=== PATIENT | male | born 1985 | race African-American/Black ===

== ENCOUNTER 2023-09-23 23:04 | Emergency (ER) | payer OTHER, SELFPAY ==
[2023-09-23 23:07] VITALS: BP 138/88; PULSE 101; O2SAT 98
[2023-09-23 23:15] VITALS: BP 136/87; PULSE 105; RESP 18; TEMP 36.9; O2SAT 98; BMI 22.3
--- NOTE | 2023-09-23 23:38 | ED_ITS ---
HPI - General Adult General Chief complaint: Wound/Laceration Stated complaint: 2 INCH LAC ON MIDDLE FINGER Time Seen by Provider: 09/23/23 23:38 History of Present Illness ED Provider: Tyrone MANUEL narrative: The patient is a 38-year-old male who says that he accidentally sustained a laceration to the dorsum of his left middle finger when he put his hand into a bag that had an open razor. The patient's and that he had a straight razor in the bag that had opened accidentally. He denies any intentional self-harm. He has no numbness or tingling in the finger. He has no sense of loss of function of the finger. Feels he is able to fully extend the finger. He believes he is up-to-date on tetanus. Related Data Allergies Allergy/AdvReac Type Severity Reaction Status Date / Time No Known Allergies Allergy Verified 09/23/23 23:17 Review of Systems Review of Systems: Yes all other systems are reviewed and are negative [facility] Social History Social History Smoked in Last 30 Days: No Use of substances other than those prescribed or required for medical reasons: No Advance Directives: No Advance Directives Information Provided: No Physical Exam ED Vital Signs: Vital Signs - 24 hr 09/23/23 23:15 Temperature 98.4 F Pulse Rate 105 H Respiratory Rate 18 Blood Pressure 136/87 Pulse Oximetry 98 Oxygen Delivery Method Room Air BMI result Body Mass Index 22.3 Const Other: The patient is awake, alert, pleasant, cooperative. He does not appear in acute distress although he has an obvious wound to the dorsum of the left index finger. HENMT Other: Appearance of the face is unremarkable. Eyes Other: Pupils are round equal, conjunctivae are clear Resp Effort & Inspection: normal respiratory effort Skin Other: There is a 3 cm laceration some of the left index finger. The laceration lies obliquely over the PIP joint. Neuro Other: The patient is awake and alert. The patient has intact motor function and sensation of the left index finger. Extrem Other: The laceration over the PIP joint dorsally of the left index finger. The patient has full extensor strength of the finger. He is able to fully extend the finger and keep the finger extended at the PIP joint against resistance. There is no deformity to the joint or the finger. Medications Administered Discontinued Medications Generic Name Dose Route Start Last Admin Trade Name Freq PRN Reason Stop Dose Admin Bacitracin 1 appl 09/24/23 00:37 09/24/23 01:01 Bacitracin Oint 0.9 Gm Packet TOPICAL 09/24/23 00:38 1 appl ONCE ONE Administration Protocol Cephalexin HCl 1,000 mg 09/24/23 00:37 09/24/23 01:01 Cephalexin 500 Mg Capsule PO 09/24/23 00:38 1,000 mg ONCE ONE Administration Lidocaine HCl 10 ml 09/24/23 00:09 09/24/23 01:01 Lidocaine Hcl 1 % 10 Ml Vial INFILTRATI 09/24/23 00:10 10 ml ONCE ONE Administration Procedures Laceration Laceration 1: Site: hand Side (If applicable): left Size (cm): 3 Description: linear Depth: simple, single layer Local Anesthetic: lidocaine 1% Amount of anesthesia used (mL): 6 Pre-repair: wound explored, irrigated extensively and deep structures intact Skin layer closed with: nylon Size (cm): 4-0 Number of sutures: 6 Technique: simple, interrupted Medical Decision Making Medical Decision Making [facility] Narrative: The patient is a 38-year-old male who sustained a laceration to the dorsum of the left index finger over the PIP joint. This was an accidental laceration. He says that he reached into a bag in which he had placed a straight razor that had accidentally opened in the bag. A laceration lies over the PIP joint but he does not seem to have any loss of extensor function of the PIP joint. The finger was anesthetized using a digital block at the base of the finger. The skin of the base of the finger was prepped with Betadine. 3 cc of 1% lidocaine were injected on either side of the base of the finger. This provided good anesthesia. The remainder of the finger was prepped with Betadine. The wound was copiously irrigated. The wound was explored. There were no obvious deeper structures injured. No apparent violation of the joint space of the PIP joint. After exploration and irrigation the wound was closed with 6 simple interrupted stitches using 4-0 nylon. Adequate wound edge approximation was achieved. The patient tolerated the procedure well. The patient was given a single dose of 1000 mg of cephalexin as wound infection prophylaxis. The patient believes he is up-to-date on tetanus. He has a primary care doctor at [facility] in [place]. He is advised to make a follow up appointment in 10 days for suture removal. He should return to the emergency room if any signs of infection. Discharge Plan Discharge Clinical Impression: Laceration of left middle finger Patient Disposition: Home, Self-Care Instructions: Finger Laceration (ED) Additional Instructions: The wound on your left middle finger was closed with 6 stitches. The stitches should be removed in approximately 10 days. This can be done at your primary care doctor's office. The dressing to the wound should be changed at least daily. Change the dressing more frequently if the dressing is wet or soiled. Apply bacitracin with dressing changes for the firstst 2 days. Please contact your primary care doctor's office in the morning to schedule a follow up appointment for suture removal in approximately 10 days. Keep the wound clean and dry. It may get wet after 24 hours but do your best to protect the wound. No swimming until the stitches are out. Return to the emergency room if any sign of infection. Referrals: [facility] [Provider Group] (left middle finger laceration) Print Language: Malian
[2023-09-24] MEDS: Lidocaine HCl 1 % 10 ML VIAL INFILTRATI (01:01)
[2023-09-24] MEDS: Bacitracin Oint 0.9 GM PACKET 1 APPL TOPICAL (01:01)
[2023-09-24] MEDS: cephALEXin 500 MG CAPSULE 1000 MG PO (01:01)
[2023-09-24 01:21] VITALS: BP 136/87; PULSE 105; RESP 18; TEMP 36.9; O2SAT 98
== END 2023-09-24 01:37 | disposition home or self-care (01) ==
PROVIDERS: Emergency Provider Emergency Medicine
DX: S61.213A Laceration without foreign body of left middle finger without damage to nail, initial encounter (principal); M79.642 Pain in left hand; W26.9XXA Contact with unspecified sharp object(s), initial encounter; Y93.9 Activity, unspecified; Y92.9 Unspecified place or not applicable; Y99.8 Other external cause status
CPT/HCPCS: 12042; 99284

== ENCOUNTER 2023-09-24 03:45 | Emergency (ER) | payer OTHER, SELFPAY ==
[2023-09-24 04:11] VITALS: BP 123/75; PULSE 65; RESP 16; TEMP 36.3; O2SAT 100; BMI 24.6
--- OUTSIDE RECORDS SUMMARY | 2023-09-24 04:46 | XMS_ITS | Continuity of Care Document ---
Author Organization [facility] ter Address [address] [place] [address]- Care Team Providers Care Fabric Worker Supervisor Name Role Phone Sara MAYS, Nata Werner Primary Care Physician [place] [facility] [place] - 05/20/[address] [address]- [facility] Discharge Disposition: A-D/C Home Attending Physician: Adithya Waldrop MD Admitting Physician: Adithya Waldrop MD Referring Physician: Not on Staff, Referring MD Allergies, Adverse Reactions, Alerts Substance Reaction Severity Status NKA Active Immunizations Given and Recorded Vaccine Date Status Refusal Reason tetanus/diphtheria/pertussis, acel(Tdap) 02/05/19 Given Medications sertraline 50 mg oral tablet = 50 mg, By Mouth, Daily, 0 Refills, Maintenance, 06/11/17 10:39:06, Tablet Start Date: 06/11/17 Status: Ordered Vital Signs Most recent to oldest [Reference Range]: 1 2 3 Oxygen Saturation [94-100 %] 100 % (05/20/19 7:08 AM) 100 % (05/20/19 2:04 AM) 100 % (05/20/19 12:22 AM) Pulse Rate [55-90 bpm] 72 bpm (05/20/19 7:08 AM) 65 bpm (05/20/19 2:04 AM) 68 bpm (05/20/19 12:22 AM) Blood Pressure [90-138/55-84 mm Hg] 112/69mm Hg (05/20/19 7:08 AM) 110/52mm Hg (05/20/19 2:04 AM) 117/65mm Hg (05/20/19 12:22 AM) Respiratory Rate [16-30 br/min] 18 br/min (05/20/19 7:08 AM) 14 br/min *L* (05/20/19 2:04 AM) 14 br/min *L* (05/20/19 12:22 AM) Temperature [96.8-100.4 DegF] 97.4 DegF (05/20/19 7:08 AM) 97.2 DegF (05/20/19 12:22 AM) Mode of Delivery (Oxygen) Room air (05/20/19 7:08 AM) Room air (05/20/19 2:04 AM) Room air (05/20/19 12:22 AM) Blood pressure sites Arm, right (05/20/19 7:08 AM) Arm, right (05/20/19 2:04 AM) Arm, right (05/20/19 12:22 AM) Temperature Route Oral (05/20/19 7:08 AM) Axillary (05/20/19 12:22 AM) Social History Social History Type Response Smoking Status 10 or more cigarette s (1/2 pack or more)/day in last 30 days entered on: 04/21/19 Sex
--- OUTSIDE RECORDS SUMMARY | 2023-09-24 04:46 | XMS_ITS | Continuity of Care Document ---
Author Organization [facility] ter Address [address] [place] [id number]- Care Team Providers Care Home Staging Specialist Name Role Phone Eden Davies MD Primary Care Physician Encounter [facility] [place] Date(s): 12/17/19 - 12/17/[address] [address]- [facility] Encounter Diagnosis Drug use(Final) - 12/17/19 Discharge Disposition: A-D/C Home Attending Physician: Trev Caraballo MD Admitting Physician: Trev Caraballo MD Referring Physician: Not on Staff, Referring [...] 1 2 3 Oxygen Saturation [94-100 %] 99 % (12/17/19 7:43 AM) 100 % (12/17/19 6:10 AM) 99 % (12/17/19 3:47 AM) Pulse Rate [55-90 bpm] 79 bpm (12/17/19 7:43 AM) 100 bpm *H* (12/17/19 6:10 AM) 120 bpm *H* (12/17/19 3:47 AM) Blood Pressure [90-138/55-84 mm Hg] 136/79mm Hg (12/17/19 7:43 AM) 135/78mm Hg (12/17/19 6:10 AM) 144/74mm Hg *H* (12/17/19 3:47 AM) Respiratory Rate [16-30 br/min] 16 br/min (12/17/19 7:43 AM) 20 br/min (12/17/19 6:10 AM) 16 br/min (12/17/19 3:47 AM) Temperature [96.8-100.4 DegF] 98.4 DegF (12/17/19 6:10 AM) 98.7 DegF (12/17/19 3:47 AM) Mode of Delivery (Oxygen) Room air (12/17/19 7:43 AM) Room air (12/17/19 6:10 AM) Room air (12/17/19 3:47 AM) Blood pressure sites Arm, right (12/17/19 7:43 AM) Arm, left (12/17/19 6:10 AM) Arm, left (12/17/19 3:47 AM) Temperature Route Oral (12/17/19 6:10 AM) Oral (12/17/19 3:47 AM) Social History Social History Type Response Smoking Status 10 or more cigarette s (1/2 pack or more)/day in last 30 days entered on: 04/21/19 Sex
--- OUTSIDE RECORDS SUMMARY | 2023-09-24 04:46 | XMS_ITS | Patient Health Record ---
Author Organization [facility] Address [address] [place], [place] [id number] Care Team Providers Care Statistical Consultant Name Role Phone [facility], Nursing Unavailable [phone] REASON FOR REFERRAL No Information SOCIAL HISTORY Sex Assigned At : Social History Observation Description Sex Assigned At Unknown VITAL SIGNS Respiratory Rate 15 /min 01/07/2023 Blood pressure diastolic 78 01/07/2023 Oximetry 100 01/07/2023 Blood pressure systolic 134 01/07/2023 BMI ` kg/m2 01/07/2023 Encounters Encounter Location Date Provider Diagnosis [facility] [address] [place], [place] [id number] 01/07/2023 Nursing [facility] Encounter for screening for COVID-19 Z11.52 ASSESSMENTS Encounter Date Diagnosis Assessment Notes Treatment Notes Treatment Clinical Notes 01/07/2023 Encounter for screening for COVID-19 (ICD-10 - Z11.52) Covid screening is negative. Discussed in detail with patient how to practice social distancing by avoiding public spaces and crowds now, wearing a mask in public to keep nose and mouth covered, and washing hands frequently especially before eating and after using the bathroom. Return to clinic if you develop any symtpoms of concern to be rescreened or go to the emergency room if you are having concerning symptoms for COVID-19. 01/07/2023 Other PLAN OF TREATMENT No Information Insurance Providers Payer Name Payer Address Payer Phone Subscriber Number Group Number Insured Name Patient Relationship to Insured Coverage Start Date Coverage End Date [place] Medicaid Standard [address] [place] [address] [id number] Boo Odom Self - patient is the insured 2
--- OUTSIDE RECORDS SUMMARY | 2023-09-24 04:46 | XMS_ITS | Continuity of Care Document ---
Author Organization [facility] ter Address [address] [place] [address]- Care Team Providers Care Bible Worker Name Role Phone Sara MAYS, Nata Werner Primary Care Physician En[place] [facility] [place](s): 04/21/19 - 04/22/[address] [address]- [facility] Encounter Diagnosis PCP abuse(Final) - 04/21/19 Discharge Disposition: A-D/C Home Attending Physician: Gerber Mariee MD Admitting Physician: Gerber Mariee MD Referring Physician: Not on Staff, Referring MD Allergies, Adverse Reactions, Alerts Substance Reaction Severity Status NKA Active Immunizations Given and Recorded Vaccine Date Status Refusal Reason tetanus/diphtheria/pertussis, acel(Tdap) 02/05/19 Given Medications sertraline 50 mg oral tablet = 50 mg, By Mouth, Daily, 0 Refills, Maintenance, 06/11/17 10:39:06, Tablet Start Date: 06/11/17 Status: Ordered Vital Signs Most recent to oldest [Reference Range]: 1 Oxygen Saturation [94-100 %] 99 % (04/21/19 7:55 PM) Pulse Rate [55-90 bpm] 77 bpm (04/21/19 7:55 PM) Blood Pressure [90-138/55-84 mm Hg] 127/ 59mm Hg (04/21/19 7:55 PM) Respiratory Rate [16-30 br/min] 19 br/mi n (04/21/19 7:55 PM) Temperature [96.8-100.4 DegF] 98.6 DegF (04/21/19 7:55 PM) Mode of Delivery (Oxygen) Room air (04/21/19 7:55 PM) Blood pressure sites Arm, left (04/21/19 7:55 PM) Temperature Route Oral (04/21/19 7:55 PM) Social History Social History Type Response Smoking Status 10 or more cigarette s (1/2 pack or more)/day in last 30 days entered on: 04/21/19 Sex
--- OUTSIDE RECORDS SUMMARY | 2023-09-24 04:46 | XMS_ITS | Continuity of Care Document ---
Author Organization [facility] Address [address] [place] [address]- Care Team Providers Care Screw Machine Operator Single Spindle Name Role Phone Eden Davies MD Primary Care Physician [place] [facility] [place](s): 11/29/20 - 11/30/[address] [address]- Encounter Diagnosis Agitation(Final) - 11/29/20 Discharge Disposition: A-D/C Home Attending Physician: Aj Albarado DO Admitting Physician: Aj Albarado DO Referring Physician: Not on Staff, Referring MD [...] 3 Oxygen Saturation [94-100 %] 100 % (11/30/20 6:47 AM) 100 % (11/30/20 3:36 AM) 100 % (11/30/20 1:02 AM) Pulse Rate [55-90 bpm] 82 bpm (11/30/20 6:47 AM) 96 bpm *H* (11/30/20 3:36 AM) 68 bpm (11/30/20 1:02 AM) Blood Pressure [90-138/55-84 mm Hg] 118/66mm Hg (11/30/20 6:47 AM) 121/67mm Hg (11/30/20 3:36 AM) 107/69mm Hg (11/30/20 1:02 AM) Respiratory Rate [16-30 br/min] 18 br/min (11/30/20 6:47 AM) 18 br/min (11/30/20 3:36 AM) 18 br/min (11/30/20 1:02 AM) Temperature [96.8-100.4 DegF] 97.6 DegF (11/30/20 6:47 AM) 97.3 DegF (11/30/20 3:36 AM) 98.6 DegF (11/29/20 9:35 PM) Mode of Delivery (Oxygen) Room air (11/30/20 6:47 AM) Room air (11/30/20 3:36 AM) Room air (11/30/20 1:02 AM) Temperature Route Oral (11/30/20 6:47 AM) Oral (11/30/20 3:36 AM) Axillary (11/29/20 9:35 PM) Social History Social History Type Response Smoking Status 10 or more cigarette s (1/2 pack or more)/day in last 30 days entered on: 04/21/19 Sex
--- OUTSIDE RECORDS SUMMARY | 2023-09-24 04:46 | XMS_ITS | Continuity of Care Document ---
Author Organization [facility] ter Address [address] [place] [address]- Care Team Providers Care Benzene Worker Name Role Phone Eden Davies MD Primary Care Physician Encounter [facility] [place] Date(s): 01/23/23 - 01/23/[address] [address]- Encounter Diagnosis Opiate overdose(Final) - 01/23/23 Cocaine use(Final) - 01/23/23 Hip pain(Final) - 01/23/23 Discharge Disposition: A-D/C Home Attending Physician: Ines Borges MD Admitting Physician: Ines Borges MD Referring Physician: Not on Staff, Referring MD Allergies, Adverse Reactions, Alerts No Known Allergies Immunizations Given and Recorded Vaccine Date Status Refusal Reason tetanus/diphtheria/pertussis, acel(Tdap) 02/05/19 Given Medications ibuprofen 600 mg oral tablet 600 mg, 1, tablet, By Mouth, 3 times a day, # 90 tablet, Refills 0, Tot. Refills 0, Acute 01/25/24 14:38:00 EST, 01/23/23 14:38:00 EDT, Route to Pharmacy Electronically, [facility]/pharmacy #[id number], Partial fill upon patient request if the prescription is for... Start Date: 01/23/23 Stop Date: 01/25/24 Status: Ordered sertraline 50 mg oral tablet = 50 mg, By Mouth, Daily, 0 Refills, Maintenance, 06/11/17 10:39:06, Tablet Start Date: 06/11/17 Status: Ordered Tylenol 325 mg oral tablet 650 mg, 2, tablet, By Mouth, Every 4 hours, PRN, # 120 tablet, Refills 0, Tot. Refills 0, Acute 01/25/24 14:38:00 EST, for pain, 01/23/23 14:38:00 EDT, Route to Pharmacy Electronically, [facility]/pharmacy #[id number], Partial fill upon patient request if the pres... Start Date: 01/23/23 Stop Date: 01/25/24 Status: Ordered Results Radiology Reports * Exam Date Time Procedure Performing Provider Status 01/23/23 1:12 PM XR Hip w/Pelvis 2-3 View Left Mai Denis; Auth (Verified) Notes: (XR Hip w/Pelvis 2-3 View Left) Reason For Exam: Pain RESULT: XR Hip w/Pelvis 2-3 View Left XR Hip w/Pelvis 2-3 View Left Hx of Present Illness: Found by people lying in parking lot, 911 was called, slow to respond and lethargic but cooperative per EMS, pt stated that he took 1bag, pt was unable to clarify; Reason: Pain; Clinical Question(s): Fracture COMPARISON: None. FINDINGS: There is no fracture or dislocation. Normal hips and sacroiliac joints. Normal soft tissues. IMPRESSION: Normal. WSN: [id number] Ordering Physician: Enriqueta Justice Dictated By: Viki Damian MD Dictated Date/Time: 01/23/23 1:37 pm Reviewed By: iVki Damian MD Signed By: Viki Damian MD Signed Date/Time: 01/23/23 1:37 pm Transcribed By: JOSE J Transcribed Date/Time: 01/23/23 1:36 pm Vital Signs Most recent to oldest [Reference Range]: 1 2 Oxygen Saturation [94-100 %] 100 % (01/23/23 2:19 PM) 100 % (01/23/23 11:13 AM) Pulse Rate [55-90 bpm] 57 bpm (01/23/23 2:19 PM) 62 bpm (01/23/23 11:13 AM) Blood Pressure [90-138/55-84 mm Hg] 117/ 63mm Hg (01/23/23 2:19 PM) 139/74mm Hg *H* (01/23/23 11:13 AM) Respiratory Rate [16-30 br/min] 18 br/mi n (01/23/23 2:19 PM) 18 br/min (01/23/23 11:13 AM) Temperature [96.8-100.4 DegF] 98.7 DegF (01/23/23 11:13 AM) Mode of Delivery (Oxygen) Room air (01/23/23 2:19 PM) Room air (01/23/23 11:13 AM) Temperature Route Oral (01/23/23 11:13 AM) Social History Social History Type Response Smoking Status 10 or more cigarette s (1/2 pack or more)/day in last 30 days entered on: 04/21/19 Sex Note * Enriqueta Justice DO: PERFORM Event Display: Patient Education Leaflets Authored Date: [id number] Opiate Overdose ?? [id number] Opiate Overdose You've been treated for an overdose of opiates, such as a prescription pain medicine or heroin.??Taking too many opiates is dangerous. They cause breathing to slow and possibly stop.??If you stop breathing for more than 2 to 3 minutes, your heart can stop and you will . Deaths from opiate overdose are a national epidemic. In 2019, the CDC estimated that more than 49,860 people in the [place] diedfrom an opioid overdose. This number reflects 70.6% of all drug overdose deaths. Signs and symptoms of overdose Symptoms can depend on how much of the drug and which ones were used. They include: ??? Trouble breathing or slow irregular breathing; breathing may even stop, which can cause ??? Drowsiness, trouble arousing, or coma ??? Small, pinpoint pupils ??? Cyanosis. This is when lips and nails appear blue because you don't have enough oxygen in the blood. ??? Slow heart rate ??? Lowbody temperature (hypothermia) ??? Muscle spasm ??? Seizures ??? If your overdose was severe, you may have been given an antidote, such as naloxone. The antidote effect lasts for about 1 to 2 hours.??If the opiate has not left your system by the time the antidote medicine wears off, your symptoms may return. These symptoms include drowsiness and slow breathing.?? If you were addicted and physically dependent on opiates, then naloxone may cause withdrawal symptoms to appear right away.??These may consist of: ??? Body aches ??? Diarrhea ??? Abdominal cramps ??? Upset stomach (nausea) ??? Vomiting ??? Runny nose ??? Sneezing ??? Sweating ??? Yawning ??? Restlessness ??? Irritability ??? Trembling These symptoms will go away as the naloxone wears off. Be aware of a drug called xylazine. This drug is approved for use in animals only. Xylazine is not safe in humans. Recently xylazine has been found as an additive in illicit drugs, especially heroin and fentanyl. Exposure to xylazine has been linked to serious and life-threatening side effects. Xylazine overdose can cause slow heart rate and breathing, low blood pressure, and coma. Repeated exposure to xylazine can cause severe skin ulcers. Xylazine overdose does not respond to naloxone. Care for xylazine overdose or exposure is supportive to help the body recover. ?? Home care The following guidelines will help you care for yourself at home: ??? Rest for the next 12 [address] or operate any vehicle or dangerous equipment until all opioid effects have worn off and you no longer feel sleepy or drowsy. ??? If you were previously prescribed opioid medicines for pain, don't take any more of this medicine for the next 6 to 8 hours, unless your healthcare provider says it's safe to do so. ??? If opioids or other drugs were swallowed, you may have been given liquid charcoal to neutralize those drugs.??The charcoal may cause nausea and vomiting over the next few hours. It will also cause a black color to your stools for the next 1 to 2 days. Usually, you will be given a laxative with the charcoal to speed the removal of any toxins from the digestive tract. This may cause diarrhea for up to 24 hours. If no laxative was given, you may become constipated. If this happens, you may take an [id number] laxative or suppository. ?? Follow-up care Follow up with your healthcare provider, or as advised if all symptoms don't go away within 24 hours, or if constipation is not eased after 2 doses of laxatives.??If your overdose was related to a drug addiction, seek drug counseling. Consider a drug treatment program to help break your habit. ?? Call 911 Call 911 if any of the following occur: ??? Seizure ??? Trouble breathing or slow irregular breathing ??? Chest pain ??? Sudden weakness on 1 side of your body or sudden trouble speaking ??? Very drowsy or having trouble waking up ??? Fainting or loss of consciousness ??? Rapid heart rate ??? Very slow heart rate ?? When to get medical advice Call your healthcare provider right away if any of the following occur: ??? Cough with colored sputum ??? Fever of 100.4??F (38??C) or higher, or as directed by your healthcare provider ??? Redness, swelling or tenderness at the heroin injection site (if using IV drugs) ??? Feeling that you might harm yourself or another Talk with your healthcare provider if you feel that you want to get drugs and would like to enter acounseling or rehabilitation program. ?? Last Reviewed Date: 2021 ?? [id number] [employer]. All rights reserved. This information is not intended as a substitute for professional medical care. Always follow your healthcare professional's instructions. ?? Patient Care team information Care Team Personnel Name: Carmen Alvarez RN Position: [facility] RN Member Role: Primary Care Nurse Name: Eden Davies MD Position: [facility] Physician - Primary Care Member Role: PCP Address: Address: [address] [place] [address]- Name: Enriqueta Justice DO Position: [facility] Resident Member Role: ED Resident Address: Address: [address] [place] [address]- Name: Zahraa Jin RN Position: [facility] ED RN W/OE and Tasks Member Role: Patient Care Provider Name: Adelia Samuel Position: [facility] ED TA [facility] Member Role: Crane Service Technician Name: Ines Borges MD Position: [facility] ED Medicine Member Role: Admitting Physician Address: Address: [address] [place] [address] [place] [address]- Care Team Related Persons Name: LEMUEL SUÁREZ Address: home [address] [place] [address]
--- OUTSIDE RECORDS SUMMARY | 2023-09-24 04:46 | XMS_ITS | Continuity of Care Document ---
Author Organization [facility] ter Address [address] [place] [id number]- Care Team Providers Care Holder Pile Driving Name Role Phone Eden Davies MD Primary Care Physician Encounter [facility] Date(s): 01/07/23 - 01/07/[address] [id number]- Encounter Diagnosis Marijuana abuse(Final) - 01/07/23 Discharge Disposition: A-D/C Home Attending Physician: Sandy Ngo MD Admitting Physician: Abiodun Royal MD, Sandy Referring Physician: Not on Staff, Referring MD [...] Range]: 1 2 Oxygen Saturation [94-100 %] 98 % (01/07/23 12:13 PM) 97 % (01/07/23 10:51 AM) Pulse Rate [55-90 bpm] 67 bpm (01/07/23 12:13 PM) 61 bpm (01/07/23 10:51 AM) Blood Pressure [90-138/55-84 mm Hg] 122/ 70mm Hg (01/07/23 12:13 PM) 125/74mm Hg (01/07/23 10:51 AM) Respiratory Rate [16-30 br/min] 18 br/mi n (01/07/23 12:13 PM) 19 br/min (01/07/23 10:51 AM) Temperature [96.8-100.4 DegF] 98.3 DegF (01/07/23 10:51 AM) Mode of Delivery (Oxygen) Room air (01/07/23 12:13 PM) Room air (01/07/23 10:51 AM) Blood pressure sites Arm, left (01/07/23 12:13 PM) Arm, left (01/07/23 10:51 AM) Temperature Route Oral (01/07/23 10:51 AM) Social History Social History Type Response Smoking Status 10 or more cigarette s (1/2 pack or more)/day in last 30 days entered on: 04/21/19 Sex EKG study * Event Display: EKG Authored Date: [id number] Note * Erik Napier DO: PERFORM Event Display: Patient Education Leaflets Authored Date: [id number] Drug Abuse ?? [id number] Drug Abuse Use and abuse of drugs or medicines may lead to addiction or dependence. You may hear drug abuse oraddiction called substance use disorder (JONNY). Examples of illegal drugs include amphetamines (alsoknown as speed or crank), methamphetamines (meth), cocaine, heroin, bath salts, and hallucinogens (such as MDMA, ecstasy, PCP, mescaline, and LSD). Xylazine is a sedative and pain reliever approved only for animals. It's not approved or safe for people. It's known by the street name tranq. Xylazine has been found in street drugs, especially heroin and fentanyl. It has been linked to overdoses and . Severe side effects from xylazine include slow heart beat and breathing, low blood pressure, skin sores, and coma. In some states, marijuana is an illegal drug. Medicines include prescription medicines, sedatives, and sleeping pills. Once addiction or dependence happens, you are at greater risk for the problems below. Social and personal problems ??? Craving for the drug and not being able to stop using even though you think you want to stop (psychological addiction) ??? Drug withdrawal symptoms if you stop takingthe drug (physical dependence) ??? Loss of friends and family ??? School or work problems ??? Arrest, conviction, and longterm sentence for possession of an illegal substance or for driving under the infl uence ?? Health problems ??? Stroke, heart attack, heart failure, and kidney failure ??? Accidental injuriesto yourself or others while you are under the influence of a drug (in a car or at home) ??? HIV infection. This is a much greater risk if you use IV drugs. ??? Skin infections ??? Other sexually transmitted infections (STIs), such as herpes, chlamydia, and gonorrhea ??? Severe and fatal infection of the heart valves if you use IV drugs ??? Hepatitis B or C ??? Dementia, mood disorders, persistenthallucinations (particularly with hallucinogens) ??? Dental problems from methamphetamine abuse ??? from overdose ?? Home care The following suggestions can help you care for yourself at home: ??? Admit you have a drug problem. Ask for help from your family and close friends. ??? Seek professional help. This could be one-on-one therapy or counseling. There are also outpatient, inpatient, and residential drug treatment programs. ??? Join a self-help group for drug abuse. ??? Stay away from friends who abuse drugs or temptyou to continue abusing drugs. ??? Eat a balanced diet and start a regular exercise program. ?? Follow-up care Follow up with your healthcare provider, or as advised. Contact 1 of the resources below for help: ??? Substance Abuse and Mental Health Services Administration (SAMHSA) at www.samhsa.gov/findtreatment ??? National [place] on Alcoholism and Drug Dependence at www.ncadd.org ??? Narcotics Anonymous at www.na.org ?? Call 911 Call 911 right away if any of these occur: ??? Seizure ??? Hard time breathing or slow, irregular breathing ??? Chest pain ??? Sudden weakness on 1 side of your body or sudden trouble speaking ??? Very drowsy or trouble waking up ??? Fainting or loss of consciousness ??? Fast heart rate ??? Very slow heart rate ?? When to get medical care Call your healthcare provider if any of these occur: ??? Agitation, anxiety, or unable to sleep ???Unintended weight loss. This means more than 10 to 15 pounds over 3 months. ??? Fever of 100.4??F (38??C) or higher, or as advised by your provider ??? Shortness of breath ??? Cough with colored sputum ??? Redness, swelling, or tenderness at an injection site ??? You think counseling or drug rehabilitation services are needed to prevent additional drug use ?? Last Reviewed Date: 2021 ?? 1851-9151 [employer]. All rights reserved. This information is not intended as a substitute for professional medical care. Always follow your healthcare professional's instructions. ?? Patient Care team information Care Team Personnel Name: Carmen Alvarez RN Position: [facility] RN Member Role: Primary Care Nurse Name: Eden Davies MD Position: [facility] Physician - Primary Care Member Role: PCP Address: Address: [address] [place] [address] Name: Evelio Alexander Position: [facility] ED TA [facility] Member Role: Scholarship Counselor Name: Sandy Ngo MD Position: [facility] ED Medicine MD Member Role: Admitting Physician Address: Address: [address] [place] [id number] Name: Erik Napier DO Position: [facility] Resident Member Role: Resident Address: Address: [address] [place] [address] Name: Yolis Mcclendon RN Position: [facility] ED RN W/OE and Tasks Member Role: Patient Care Provider Care Team Related Persons Name: LEMUEL SUÁREZ Address: [place] [address]
--- OUTSIDE RECORDS SUMMARY | 2023-09-24 04:46 | XMS_ITS | Continuity of Care Document ---
Author Organization [facility] Address [address] [place] [id number]- Care Team Providers Care Induction Coordination Power Engineer Name Role Phone Eden Davies MD Primary Care Physician Encounter [facility] Date(s): 10/15/20 - 10/16/[address] [address]- Encounter Diagnosis Agitation(Final) - 10/16/20 Discharge Disposition: A-D/C Home Attending Physician: Shannan Eagle MD Admitting Physician: Shannan Eagle MD Referring Physician: Not on Staff, Referring [...] 2 Oxygen Saturation [94-100 %] 100 % (10/16/20 8:39 AM) 96 % (10/15/20 8:08 PM) Pulse Rate [55-90 bpm] 74 bpm (10/16/20 8:39 AM) 123 bpm *H* (10/15/20 8:08 PM) Blood Pressure [90-138/55-84 mm Hg] 144/ 91mm Hg *H* (10/16/20 8:39 AM) 141/71mm Hg *H* (10/15/20 8:08 PM) Respiratory Rate [16-30 br/min] 20 br/mi n (10/16/20 8:39 AM) 16 br/min (10/15/20 8:08 PM) Temperature [96.8-100.4 DegF] 98.3 DegF (10/16/20 8:39 AM) 98.3 DegF (10/15/20 8:08 PM) Mode of Delivery (Oxygen) Room air (10/16/20 8:39 AM) Room air (10/15/20 8:08 PM) Blood pressure sites Arm, right (10/16/20 8:39 AM) Arm, right (10/15/20 8:08 PM) Temperature Route Oral (10/16/20 8:39 AM) Oral (10/15/20 8:08 PM) Social History Social History Type Response Smoking Status 10 or more cigarette s (1/2 pack or more)/day in last 30 days entered on: 04/21/19 Sex
--- NOTE | 2023-09-24 05:05 | ED_ITS ---
HPI - General Adult General Chief complaint: General Medical Stated complaint: doesnt feel well after meds Time Seen by Provider: 09/24/23 04:53 Source: patient Mode of arrival: ambulatory Limitations: no limitations History of Present Illness ED Provider: jasmeet MANUEL narrative: Patient does have laceration to the finger which was sutured comes back as feeling nauseated not feeling good patient had cook out last night no diarrhea no vomiting does feel nauseated Related Data Allergies Allergy/AdvReac Type Severity Reaction Status Date / Time No Known Allergies Allergy Verified 09/24/23 04:13 Review of Systems Review of Systems: Yes all other systems are reviewed and are negative [facility] Social History Social History Advance Directives: No Advance Directives Information Provided: No Do you have a plan to hurt others: No Plan Physical Exam ED Vital Signs: Vital Signs - 24 hr 09/24/23 04:11 Temperature 97.4 F Pulse Rate 65 Respiratory Rate 16 Blood Pressure 123/75 Pulse Oximetry 100 Oxygen Delivery Method Room Air BMI result Body Mass Index 24.6 Appearance: Alert. Oriented X3. No acute distress. Eyes: No pallor or icterus ENT: Pharynx normal. Oral Mucosa moist Neck: Normal inspection. Neck supple. CVS: Normal heart rate and rhythm. Pulses normal. Respiratory: No respiratory distress. Equal air entry bilateral, Abdomen: Soft and nontender. Bowel sounds are present, no mass palpable, no CVA tenderness Skin: Skin warm and dry. Normal skin color. Normal skin turgor. Extremities: No lower extremity edema. No calf tenderness Neuro: Oriented X 3. Medications Administered Discontinued Medications Generic Name Dose Route Start Last Admin Trade Name Tinoq PRN Reason Stop Dose Admin Ondansetron HCl 4 mg 09/24/23 05:07 09/24/23 05:17 Ondansetron Odt 4 Mg Tab.Rapdis TRANSLINGU 09/24/23 05:08 4 mg ONCE ONE Administration Medical Decision Making Medical Decision Making [facility] Narrative: Patient with vague symptoms does not any ride to go home complaining of nausea will give him Zofran p.o. challenge discharge Lab Data [facility] Lab Attestation statement: I reviewed the patient's lab results. Labs: Lab Results 09/24/23 Range/Units 05:12 POC Glucose 100 (60-115) mg/dL Discharge Plan Discharge Clinical Impression: Laceration of left middle finger Patient Disposition: Home, Self-Care Instructions: Laceration (ED) Additional Instructions: Drink plenty of fluids Care of the laceration as advised in previous visit Print Language: Divehi
[2023-09-24 05:17] LABS: Glucose, Whole Blood 100 mg/dL (60-115)
[2023-09-24] MEDS: Ondansetron ODT 4 MG TAB.RAPDIS TRANSLINGU (05:17)
[2023-09-24 06:16] VITALS: BP 134/86; PULSE 68; RESP 18; TEMP 36.5; O2SAT 99
== END 2023-09-24 06:16 | disposition home or self-care (01) ==
PROVIDERS: Emergency Provider Internal Medicine
DX: R11.0 Nausea (principal); S61.213D Laceration without foreign body of left middle finger without damage to nail, subsequent encounter; X58.XXXD Exposure to other specified factors, subsequent encounter
CPT/HCPCS: 82947; 99282; 99283

== ENCOUNTER 2023-10-16 14:22 | Emergency (ER) | payer OTHER, SELFPAY ==
[2023-10-16 14:29] VITALS: BP 123/65; PULSE 77; RESP 16; TEMP 36.5; O2SAT 97; BMI 25.8
--- NOTE | 2023-10-16 14:29 | ED_ITS ---
HPI - Skin/Abscess/Foreign Bdy General Chief complaint: Wound/Laceration Stated complaint: suture removal Time Seen by Provider: 10/16/23 14:32 Source: patient, RN notes reviewed and old records reviewed Mode of arrival: ambulatory History of Present Illness ED Provider: Madie Schwartz PA-C HPI narrative: 38-year-old male with no significant past medical history presenting to ED for suture removal left middle finger s/p placement our ED 09/23/2023. Denies complaints at present, pain, drainage, fever/chills, redness. States was unable to get to the ED for removal until now Related Data Previous Rx's ?Medication ?Instructions ?Recorded bacitracin 500 unit/gram topical 1 appl topical BID 7 days #144 ea 10/16/23 packet Allergies Allergy/AdvReac Type Severity Reaction Status Date / Time kiwi Allergy Difficulty Verified 10/16/23 14:31 Swallowing Review of Systems Review of Systems: Constitutional: No Fever, No Chills Cardiovascular: No Chest Pain, No SOB Respiratory: No Cough, No Sputum, No Wheezing Musculoskeletal: No joint pain, No Myalgias, No Joint Swelling Skin: No Skin Lesions, No rash, +wound Neuro: No Weakness, No Numbness, No Paresthesias Yes all other systems are reviewed and are negative Constitutional: Constitutional: Reports as per [facility] Past Medical History Attestation statement: The following information was validated with the patient. Source: old records reviewed Physical Exam Vital Signs: Vital Signs: Last Vital Signs Temp 97.7 F 10/16/23 14:36 Pulse 77 10/16/23 14:36 Resp 16 10/16/23 14:36 BP 123/65 10/16/23 14:36 Pulse Ox 97 10/16/23 14:36 O2 Del Method Room Air 10/16/23 14:36 BMI result Body Mass Index 25.8 Const: General: cooperative, healthy appearing and no acute distress Orientation/consciousness: patient oriented x3 Limitations: no limitations HEENT: Head: Yes normal to inspection and Yes atraumatic Ears: hearing grossly normal bilaterally General nose exam: Normal external nose present Face and sinus: Yes normal facial exam Eyes: General: appearance normal, both eyes and all related structures EOM: EOMs intact bilaterally Neck: Neck: Yes normal visual inspection and Yes no meningeal signs Resp: Effort & Inspection: normal respiratory effort and no respiratory distress Cardio: Rate: regular rate Skin: Other: Healing wound to left 3rd digit PIP with 4 sutures still intact. Healing appropriately. No erythema, pus drainage, fluctuance or induration. Full range of motion intact. Rashes: no rashes Neuro: General: patient oriented x3, tone normal and no meningeal signs Cranial nerves: Yes CN's II-XII intact bilaterally Gait exam (Neuro): Normal gait present Extrem: General: Yes normal to inspection Medical Decision Making Medical Decision Making MDM Narrative: 38-year-old male with no significant past medical history presenting to ED for suture removal left index finger s/p placement our ED 09/23/2023. On exam vital signs stable, NAD, nontoxic appearing, per previous note 6 sutures were placed, appears 2 have fallen out, 4 sutures still intact area, removed without complication. No evidence of cellulitis or underlying abscess/infection Plan: Suture removal, PCP follow-up Please refer to course for remaining clinical decision making, interpretation of labs/imaging results, and discussions with consultants and/or family members. Results discussed with patient including worrisome signs and symptoms and strict return precautions, and when to return to the emergency department. They verbalized understanding and feel safe for discharge at this time. Differential Diagnosis Differential Diagnoses: The differential diagnosis associated with the presentation includes As above External Record Review External record reviewed: Inpatient record, Office record, Outpatient record, Prior outpatient labs, Prior outpatient radiology, Primary care record and Outside ED record Tests considered The following testing was considered but not selected: As above Prescription Management I considered prescription management with: Antibiotic Procedures Procedure Narrative Procedure Narrative: Suture removal: 4 sutures removed without complications Discharge Plan Discharge Clinical Impression: Visit for suture removal Patient Disposition: Home, Self-Care Instructions: Stitches Removal (ED) Additional Instructions: keep area clean If begins to look infected, it is red there is pus drainage or you fever or decreased range of motion return to the ED Prescriptions: New bacitracin 500 unit/gram packet 1 appl topical BID 7 Days Qty: 144 0RF Referrals: Physician,Unknown J [Primary Care Provider] - Print Language: Azeri
[2023-10-16 14:36] VITALS: BP 123/65; PULSE 77; RESP 16; TEMP 36.5; O2SAT 97
== END 2023-10-16 14:40 | disposition home or self-care (01) ==
LOC: HO.ED 14:37
PROVIDERS: Emergency Provider Emergency Medicine
DX: Z48.02 Encounter for removal of sutures (principal); S61.213D Laceration without foreign body of left middle finger without damage to nail, subsequent encounter; W45.8XXD Other foreign body or object entering through skin, subsequent encounter
CPT/HCPCS: 99282

== ENCOUNTER 2023-10-26 10:04 | Emergency (ER) | payer OTHER, SELFPAY ==
--- NOTE | ~2023-10-26 | XR_ITS ---
EXAMINATION: XR CHEST CLINICAL INFORMATION: Hemoptysis COMPARISON: None available. TECHNIQUE: 2 views of the chest were obtained. FINDINGS: No significant abnormality is noted involving the heart, lungs, mediastinum, bony thorax or soft tissues. XR/XR chest 2V IMPRESSION: Unremarkable examination.
--- NOTE | ~2023-10-26 | CT_ITS ---
EXAMINATION: CT ABDOMEN AND PELVIS WITH AND WITHOUT CONTRAST: CT GI BLEEDING STUDY CLINICAL INFORMATION: epigastric pain, LUQ pain hematemesis. COMPARISON: No pertinent prior studies are available for comparison. TECHNIQUE: Multidetector volumetric imaging was performed from the lung bases to the pubic symphysis before and after the administration of: Intravenous contrast: 100 mL Omnipaque 350 2 sets of post contrast scanning were obtained, one during the arterial phase and one after a 2 minute delay. No contrast reaction reported MIP coronal, sagittal and coronal reformatted images were obtained on the technologist workstation. This CT examination was performed using dose optimization techniques as appropriate, variously including the following: *Automated exposure control *Adjustment of mA and/or kV according to patient size (this includes techniques or standardized protocols for targeted exams where dose is matched to indication/reason for exam; i.e. extremities or head) *Use of iterative reconstruction technique Total exam dose-length product 1047 mGy-cm FINDINGS: STOMACH: No abnormal wall thickening or mass. No intraluminal contrast accumulation to suggest hemorrhage. SMALL BOWEL: No abnormal wall thickening or dilation. No intraluminal contrast accumulation to suggest hemorrhage. COLON: No intraluminal contrast accumulation to suggest hemorrhage. No colonic wall thickening or pericolonic inflammatory changes. Diverticulosis without evidence of diverticulitis. Normal appendix. LUNG BASES: No nodules, mass, or focal consolidation. PLEURA: No pleural effusion. LIVER, GALLBLADDER, AND BILIARY TREE: The liver is normal in size, shape, and attenuation. No focal hepatic lesion or biliary ductal dilatation is present. The gallbladder is unremarkable with no evidence of radiopaque gallstones, gallbladder wall thickening, or obvious pericholecystic inflammatory changes. PANCREAS: Normal; no mass or surrounding fluid. SPLEEN: Normal size. No focal lesion. ADRENAL GLANDS: Normal; no mass. KIDNEYS AND URETERS: The kidneys are normal in size, shape, and attenuation. There is a 2 mm right upper pole nonobstructing calculus. No hydronephrosis, hydroureter, or additional calculi. ABDOMINAL WALL: No hernia seen. LYMPHOVASCULAR STRUCTURES: No lymphadenopathy. The aorta is normal in caliber. BLADDER: No focal mass or wall thickening seen. No bladder calculi. PELVIC VISCERA: Minimal BPH. Seminal vesicles appear normal. OSSEOUS STRUCTURES: No acute or suspicious osseous abnormality. CT/CT gi bleed abd pel wo/w IVcon IMPRESSION: 1. No evidence of active gastrointestinal hemorrhage. 2. No acute findings in the abdomen or pelvis. 3. Diverticulosis without evidence of diverticulitis. 4. Nonobstructing 2 mm right upper pole renal calculus.
[2023-10-26 10:13] VITALS: BP 110/76; PULSE 72; O2SAT 100
--- NOTE | 2023-10-26 10:14 | ED_ITS ---
HPI - General Adult General Chief complaint: Abdominal Pain Stated complaint: vomiting blood Time Seen by Provider: 10/26/23 10:13 Source: patient and RN notes reviewed Mode of arrival: ambulatory Limitations: no limitations History of Present Illness ED Provider: Judith Barrera PA-C [facility] narrative: This is a 38-year-old male who presents emergency department with complaints of 1 episode of spitting up blood which occurred this morning. Patient states that he has been staying at a friend's house and states that he use HL and just yesterday. He states that he awoke this morning with slight abdominal pain, and went to the bathroom in spit up a small amount of blood. He denies history of similar symptoms in the past. He states that he is feeling well but is concerned as this has never happened to him before. He states that he does not actively have abdominal pain. He states that he was incarcerated for 10 years several years ago. He is currently homeless. He denies any fevers, chills, profound weight loss, profound night sweats, chest pain, shortness of breath, abdominal pain, nausea, vomiting or diarrhea. Denies taking any medications at home to treat his current symptoms. He denies daily alcohol use. No recent surgeries. No bloody or black stool. No other complaints or concerns at this time. MD complaint: Spit up blood Onset (ago): hour(s) Quality: aching Pain Consistency: constant Relieving factors: none Exacerbating factors: none Associated symptoms: denies other symptoms Treatments prior to arrival: none Related Data Previous Rx's ?Medication ?Instructions ?Recorded bacitracin 500 unit/gram topical 1 appl topical BID 7 days #144 ea 10/16/23 packet Allergies Allergy/AdvReac Type Severity Reaction Status Date / Time kiwi Allergy Difficulty Verified 10/26/23 10:18 Swallowing Review of Systems 2 Review of Systems: Yes all other systems are reviewed and are negative Constitutional: Constitutional: Reports as per [facility] Past Medical History Attestation statement: The following information was validated with the patient. Physical Exam ED Vital Signs: Vital Signs - 24 hr 10/26/23 10:15 10/26/23 12:41 10/26/23 14:08 Temperature 98.4 F 98.3 F Pulse Rate 67 64 70 Respiratory Rate 19 16 16 Blood Pressure 124/76 113/71 130/85 Pulse Oximetry 99 100 100 Oxygen Delivery Method Room Air Room Air Room Air 10/26/23 15:25 Temperature 97.6 F Pulse Rate 51 Respiratory Rate 16 Blood Pressure 109/61 Pulse Oximetry 100 Oxygen Delivery Method Room Air BMI result Body Mass Index 25.3 Const General: cooperative, comfortable and no acute distress Orientation/consciousness: patient oriented x3 Limitations: no limitations HENMT Head: Yes normal to inspection, Yes normocephalic and Yes atraumatic Ears: hearing grossly normal bilaterally General nose exam: Normal external nose present Face and sinus: Yes normal facial exam Mouth: Normal oral and palatal mucosa present, oropharynx normal and moist mucous membranes Throat: Yes posterior oropharynx normal Eyes General: appearance normal, both eyes and all related structures Eyelids: Yes eyelids normal Conjunctivae: conjunctivae normal Sclerae: sclerae normal Pupils: Equal, round and reactive pupils present EOM: EOMs intact bilaterally Neck Neck: Yes normal visual inspection, Yes full ROM and Yes no lymphadenopathy Lymphatic: no lymphadenopathy noted Chest Chest palpation & inspection: normal inspection of the chest Resp Effort & Inspection: normal respiratory effort and able to speak in complete sentences Auscultation: clear to auscultation bilaterally, no crackles, no rales, no rhonchi and no wheezes Cardio Rate: regular rate Rhythm: regular rhythm Heart sounds: S1 normal heart sound present and S2 normal heart sound present GI Other: Abdomen is soft, nontender, nondistended Inspection: Yes normal to inspection Skin General skin exam: no rashes or lesions noted Trauma: no lacerations or abrasions Wounds: no wounds Neuro General: patient oriented x3 and moves all extremities Cranial nerves: Yes Equal, round and reactive pupils present Extrem General: Yes normal to inspection Right upper extremity: normal to inspection Left upper extremity: normal to inspection Right lower extremity: normal to inspection Left lower extremity: normal to inspection Course Reevaluation(s) Reevaluation #1: Patient with normocytic anemia with an H&H of 13 and 38. He is eating and drinking without difficulty. No return of symptoms. He tested positive for PCP. His chest x-ray was normal. Upon my reassessment, patient is tearful, reporting abdominal pain, left upper and epigastric in nature. Time: 12:52 Reevaluation #2: CT abdomen unremarkable for any acute findings. No GI bleed found. Patient symptoms slightly improved, will medicate with GI cocktail, will re-evaluate. Time: 15:44 Reevaluation #3: Patient's symptoms improved, feeling much better he is eating and drinking without difficulty. Given strict return precautions. He understands and agrees with. Patient stable discharge Medications Administered Discontinued Medications Generic Name Dose Route Start Last Admin Trade Name Jacqueline PRN Reason Stop Dose Admin Al Hydroxide/Mg Hydroxide 30 ml 10/26/23 15:35 10/26/23 15:41 Magnesium Hydrox/Alum Hydrox 30 Ml Oral.Susp PO 10/26/23 15:36 30 ml ONCE ONE Administration Belladonna Alkaloids/Phenobarbital 10 ml 10/26/23 15:35 10/26/23 15:41 Phenobarb/Hyoscy/Atropine/Scop 10 Ml Elixir PO 10/26/23 15:36 10 ml ONCE ONE Administration Famotidine 20 mg 10/26/23 12:57 10/26/23 13:05 Famotidine/Pf 20 Mg/2 Ml Vial IVPUSH 10/26/23 12:58 20 mg ONCE ONE Administration Iohexol 80 ml 10/26/23 13:33 10/26/23 13:39 Iohexol 350 Mg/Ml 100 Ml Infus..Btl IV 10/26/23 13:34 80 ml ONCE ONE Administration Lidocaine HCl 15 ml 10/26/23 15:35 10/26/23 15:41 Lidocaine Hcl Viscous 2 % 15 Ml Solution MUCOUS MEM 10/26/23 15:36 15 ml ONCE ONE Administration Medical Decision Making Medical Decision Making [facility] Narrative: This is a 30-year-old male who presents emergency department with complaints of 1 episode of coughing up blood. On arrival, vital signs within normal limits. His physical exam is normal. Differential diagnoses include gastritis, upper GI bleed-unlikely, peptic ulcer disease, TB - unlikely. He has hemodynamically stable. When asked to quantify how much blood he spit up he said it was a tiny amount. Given not significant amount of blood, will continue to closely monitor for recurrent of symptoms. Plan: Labs, EKG, chest x-ray, closely monitor. Differential Diagnosis Differential Diagnoses: The differential diagnosis associated with the presentation includes See above Admission/Observation Consideration of admission/observation: Escalation of care including admission/observation considered Lab Data [facility] Lab Attestation statement: I reviewed the patient's lab results. No leukocytosis, H&H revealing a normocytic anemia at 13/38.4, chemistry within normal limits. Patient tested positive for PCP serology negative. 10/26/23 11:05 10/26/23 11:05 Labs: Lab Results 10/26/23 Range/Units 11:05 WBC 3.5 L (4.8-10.8) X10*3/uL RBC 4.50 L (4.60-5.80) X10*6/uL Hgb 13.0 L (14.0-18.0) g/dl Hct 38.4 L (42.0-52.0) % MCV 85.3 (80.0-98.0) fL MCH 28.9 (27.0-33.0) pg MCHC 33.9 (31.0-36.0) g/dl RDW 13.9 (11.0-16.0) % Plt Count 167 (160-400) X10*3/uL MPV 10.3 (9.4-12.4) fL Immature Gran % (Auto) 0.0 (0.0-0.4) % Neut % (Auto) 47.4 (45-73) % Lymph % (Auto) 37.3 (20-40) % [place] % (Auto) 11.8 H (2-11) % Eos % (Auto) 2.6 (0-4) % Baso % (Auto) 0.9 (0-2) % Lymph # (Auto) 1.3 (1.2-4.9) X10*3/uL [place] # (Auto) 0.4 (0.1-1.2) X10*3/uL Eos # (Auto) 0.1 (0.0-0.4) X10*3/uL Baso # (Auto) 0.0 (0.0-0.2) X10*3/uL Abs Immat Gran (auto) 0.00 (0.00-0.03) X10*3/uL Absolute Neuts (auto) 1.6 L (2.0-8.3) x10*3/uL Absolute Nucleated RBC 0.000 (0.0-0.012) X10*3/uL Nucleated RBC % (auto) 0.0 (0.0-0.2) /100WBC Sodium 139 (135-145) mmol/L Potassium 4.0 (3.3-5.1) mmol/L Chloride 106 (96-108) mmol/L Carbon Dioxide 28 (22-29) mmol/L Anion Gap 9 L (12-20) BUN 9 (9-16) mg/dL Creatinine 0.87 (0.5-1.4) mg/dL Estim Creat Clear Calc 118.8 Estimated GFR > 60 Random Glucose 99 (60-115) mg/dL Calcium 9.6 (8.4-10.2) mg/dL Magnesium 2.2 (1.6-2.6) mg/dL Total Bilirubin 0.7 (0.0-1.0) mg/dL Direct Bilirubin 0.3 (0.0-0.5) mg/dL AST 19 (5-37) U/L ALT 15 (0-40) U/L Alkaline Phosphatase 53 (39-117) U/L Troponin I High Sens < 2.7 (<3.5-35.0) ng/L Total Protein 7.0 (6.5-8.0) g/dL Albumin 4.3 (3.5-5.0) g/dL Lipase 8 (8-78) U/L Urine Opiates Screen Not Detected (Not Detect) Ur Buprenorphine Scrn Not Detected (Not Detect) ng/mL Ur Oxycodone Screen Not Detected (Not Detect) ng/mL Urine Methadone Screen Not Detected (Not Detect) ng/mL Urine Fentanyl Screen Not Detected (Not Detect) Ur Barbiturates Screen Not Detected (Not Detect) Ur Phencyclidine Scrn POSITIVE H (Not Detect) Ur Amphetamines Screen Not Detected (Not Detect) U Benzodiazepines Scrn Not Detected (Not Detect) Urine Cocaine Screen Not Detected (Not Detect) U Marijuana (THC) Screen Not Detected (Not Detect) Ethyl Alcohol < 10 mg/dL Influenza Type A (PCR) NEGATIVE (Negative) Influenza Type B (PCR) NEGATIVE (Negative) RSV RNA Qual (PCR) NEGATIVE (Negative) SARS-CoV-2 RNA (RT-PCR) NEGATIVE (Negative) TB Test (T-Spot) Com Negative (Negative) TB Test Nil Control Passed TB Test Panel A 1 TB Test Panel B 0 TB Test Positive Cntrl Passed Radiology Impression Discussion of test interpretation with radiology: I have reviewed the radiologist's reading. Discharge Plan Discharge Clinical Impression: Abdominal pain Patient Disposition: Home, Self-Care Instructions: Abdominal Pain (ED) Additional Instructions: You were seen in the emergency department due to abdominal pain. Your blood work today was reassuring. Your CT of your abdomen was unremarkable. Please drink plenty of fluids get plenty of rest. Follow-up with your primary care physician regarding this visit. Stick to a bland diet, avoid spicy or fried foods. If any new or worsening symptoms occur including but not limited to worsening abdominal pain, fevers, chills, chest pain or shortness of breath, please return for re-evaluation. Prescriptions: No Action bacitracin 500 unit/gram packet 1 appl topical BID 7 Days Qty: 144 0RF Interventions: ED Discharge Assessment Last Done: 10/26/23 16:46 Discharge Date/Time: 10/26/23 16:47 Print Language: Tajik
[2023-10-26 10:15] VITALS: BP 124/76; PULSE 67; RESP 19; TEMP 36.9; O2SAT 99; BMI 25.3
--- NOTE | 2023-10-26 10:29 | ECG_ITS ---
Test Reason : CHEST PAIN Blood Pressure : / mmHG Vent. Rate : 052 BPM Atrial Rate : 052 BPM P-R Int : 188 ms QRS Dur : 090 ms QT Int : 366 ms P-R-T Axes : 052 035 027 degrees QTc Int : 340 ms Sinus bradycardia Otherwise normal ECG No previous ECGs available Referred By: Judith Barrera Electronically Signed By:STEFANI GAVIN MD
[2023-10-26 11:14] LABS: MANUAL DIFF FLAG NO
[2023-10-26 11:17] LABS: Basophils Percent Auto 0.9 % (0-2); Eosinophils Absolute Auto 0.1 X10*3/uL (0.0-0.4); Eosinophils Percent Auto 2.6 % (0-4); Hematocrit 38.4 % (42.0-52.0); Lymphocytes Absolute Auto 1.3 X10*3/uL (1.2-4.9); Lymphocytes Percent Auto 37.3 % (20-40); Mean Corpuscular HGB Conc 33.9 g/dl (31.0-36.0); Mean Corpuscular Hemoglobin 28.9 pg (27.0-33.0); Mean Corpuscular Volume 85.3 fL (80.0-98.0); Mean Platelet Volume 10.3 fL (9.4-12.4); Monocytes Absolute Auto 0.4 X10*3/uL (0.1-1.2); Monocytes Percent Auto 11.8 % (2-11); Neutrophils Absolute Auto 1.6 x10*3/uL (2.0-8.3); Neutrophils Percent Auto 47.4 % (45-73); Platelet Count 167 X10*3/uL (160-400); Red Cell Distribution Width 13.9 % (11.0-16.0); White Blood Count 3.5 X10*3/uL (4.8-10.8)
[2023-10-26 11:27] LABS: Amphetamine Screen Urine Not Detected (Not Detect); Barbiturates, Urine Not Detected (Not Detect); Benzodiazepines Screen Urine Not Detected (Not Detect); Buprenorphine Scr Not Detected (Not Detect); Cannabinoid Screen Urine Not Detected (Not Detect); Cocaine Screen Urine Not Detected (Not Detect); Fentanyl, urine Not Detected (Not Detect); Methadone Screen, Urine Not Detected (Not Detect); Opiate Screen Urine Not Detected (Not Detect); Oxycodone Screen Urine Not Detected (Not Detect); Phencyclidine Screen Urine POSITIVE (Not Detect)
[2023-10-26 11:32] LABS: Alanine Aminotransferase 15 U/L (0-40); Albumin Level 4.3 g/dL (3.5-5.0); Alkaline Phosphatase 53 U/L (39-117); Anion Gap 9 (12-20); Aspartate Amino Transferase 19 U/L (5-37); Bilirubin Direct 0.3 mg/dL (0.0-0.5); Bilirubin Total 0.7 mg/dL (0.0-1.0); Blood Urea Nitrogen 9 mg/dL (9-16); Calcium 9.6 mg/dL (8.4-10.2); Carbon Dioxide 28 mmol/L (22-29); Chloride 106 mmol/L (96-108); Creatinine Clr Calc Pharmacy 118.8; Estimated Glomerular Filt Rate > 60; Ethanol < 10 mg/dL; Glucose Random 99 mg/dL (60-115); Lipase 8 U/L (8-78); Magnesium 2.2 mg/dL (1.6-2.6); Sodium 139 mmol/L (135-145)
[2023-10-26 11:39] LABS: Troponin-I High Sensitivity < 2.7 ng/L (<3.5-35.0)
[2023-10-26 11:58] LABS: Influenza A PCR NEGATIVE (Negative); Influenza B PCR NEGATIVE (Negative); Resp Syncy Virus RNA Qual PCR NEGATIVE (Negative); SARS COV2 PCR INHOUSE NEGATIVE (Negative)
[2023-10-26 12:41] VITALS: BP 113/71; PULSE 64; RESP 16; TEMP 36.8; O2SAT 100
[2023-10-26] MEDS: Famotidine/PF 20 MG/2 ML VIAL IVPUSH (13:05)
[2023-10-26] MEDS: iohexoL 350 MG/ML 100 ML INFUS..BTL 80 ML IV (13:39)
[2023-10-26 14:08] VITALS: BP 130/85; PULSE 70; RESP 16; O2SAT 100
[2023-10-26 15:25] VITALS: BP 109/61; PULSE 51; RESP 16; TEMP 36.4; O2SAT 100
[2023-10-26] MEDS: Magnesium Hydrox/Alum Hydrox 30 ML ORAL.SUSP PO (15:41)
[2023-10-26] MEDS: PHENobarb/Hyoscy/Atropine/Scop 10 ML ELIXIR PO (15:41)
[2023-10-26] MEDS: Lidocaine HCl Viscous 2 % 15 ML SOLUTION MUCOUS MEM (15:41)
[2023-10-26 16:46] VITALS: BP 109/61; PULSE 51; RESP 16; TEMP 36.4; O2SAT 100
[2023-10-29 02:19] LABS: TS Negative Control Passed; TS Panel A 1; TS Panel B 0; TS Positive Control Passed; TSpotTB Negative (Negative)
== END 2023-10-26 16:47 | disposition home or self-care (01) ==
PROVIDERS: Physician Assistant Medical; Emergency Provider Emergency Medicine; PCP Internal Medicine
DX: R10.12 Left upper quadrant pain (principal); R07.9 Chest pain, unspecified; R04.2 Hemoptysis; K92.0 Hematemesis; R10.13 Epigastric pain; Z03.818 Encounter for observation for suspected exposure to other biological agents ruled out; Z59.00 Homelessness unspecified
CPT/HCPCS: 0241U; 36415; 71046; 74178; 80048; 80076; 80307; 83690; 83735; 84484; 85025; 86481; 93005; 96374; 99284; Q9967

== ENCOUNTER → 2023-10-26 10:29 | Outpatient (BNV) | payer OTHER, SELFPAY | PROVIDERS: Emergency Provider Emergency Medicine; PCP Internal Medicine; Visit Provider Internal Medicine Cardiovascular Disease | DX: R07.9 Chest pain, unspecified (principal) | CPT/HCPCS: 93010 ==